=== PATIENT | female | born 1990 | race Caucasian/White ===

== ENCOUNTER 2016-11-25 14:28 | Emergency (ER) | payer MEDICAID, OTHER ==
[2016-11-25 14:34] VITALS: TEMP 98.1; O2SAT 97
--- NOTE | 2016-11-25 15:25 | EDPHY ---
H & P Stated Complaint: pelvic, abdominal pain for 4 days. sent from pcp Time Seen by Provider: 11/25/16 15:01 HPI/ROS: CHIEF COMPLAINT: Intermittent abdominal pain for 1 month HISTORY OF PRESENT ILLNESS: The patient is referred to the emergency department for a 1 month history of intermittent abdominal pain. She has had a migratory pain primarily localized to the left lower quadrant. She denies vaginal bleeding, dysuria or urinary frequency. She has no prior history of significant abdominal pain. She denies nausea, vomiting or diarrhea. She denies recent antibiotic use. She denies history of fall or trauma. The patient denies prior abdominal surgical history. REVIEW OF SYSTEMS: A comprehensive 10 point review of systems is otherwise negative aside from elements mentioned in the history of present illness. Source: Patient Exam Limitations: No limitations - Personal History LMP (Females 10-55): 8-14 Days Ago Current Tetanus Diphtheria and Acellular Pertussis (TDAP): Yes - Medical/Surgical History Hx Asthma: No Hx Chronic Respiratory Disease: No Hx Diabetes: No Hx Cardiac Disease: No Hx Renal Disease: No Hx Cirrhosis: No Hx Alcoholism: No Hx HIV/AIDS: No Hx Splenectomy or Spleen Trauma: No Other PMH: Otherwise healthy - Social History Smoking Status: Former smoker - Physical Exam Exam: General Appearance: Alert, no distress Eyes: Pupils equal and round no pallor or injection ENT, Mouth: Mucous membranes moist Respiratory: There are no retractions, lungs are clear to auscultation Cardiovascular: Regular rate and rhythm Gastrointestinal: Minimal tenderness to palpation in the left lower quadrant, no peritoneal signs Neurological: A&O, normal motor function, normal sensory exam, normal cranial nerves Skin: Warm and dry, no rashes Musculoskeletal: Neck is supple nontender Extremities: symmetrical, full range of motion Psychiatric: Patient is oriented X 3, there is no agitation Constitutional: Initial Vital Signs Temperature (C) 36.7 C 11/25/16 14:29 Heart Rate 85 11/25/16 14:29 Respiratory Rate 18 11/25/16 14:29 Blood Pressure 120/66 11/25/16 14:29 O2 Sat (%) 97 11/25/16 14:29 O2 Delivery Mode Room Air Allergies/Adverse Reactions: morphine Allergy (Mild, Verified 10/29/15 12:12) vomiting and shaking Sulfa (Sulfonamide Antibiotics) Allergy (Unknown, Verified 10/29/15 12:12) Home Medications: Medication Instructions Recorded Cephalexin [Keflex] 500 mg PO TID #15 cap 11/25/16 Medical Decision Making - Diagnostics Imaging: Pelvic ultrasound: Images reported to me by Dr. Rafael Wolf as showing no evidence of torsion or free fluid. There is no evidence of significant ovarian cyst. ED Course/Re-evaluation: The patient presents to the ED for evaluation of 1 month of migratory abdominal pain. The patient's abdominal examination is benign and does demonstrate minimal tenderness to palpation in the left lower quadrant. The pelvic ultrasound has been ordered to evaluate for ovarian pathology. The patient's pelvic ultrasound demonstrates no evidence of torsion. There is no evidence an acute abdomen in the emergency department today. The patient does have mild pyuria and bacteriuria. The patient will be treated for possible UTI with Keflex. The patient will follow up with her regular physician. The patient does report [facility] and [facility] an unremarkable Pap smear done within the past month. Differential Diagnosis: Differential diagnosis considered includes urinary tract infection, ovarian cyst , ovarian torsion, ectopic , intrauterine - Data Points Laboratory Results: Laboratory Results 11/25/16 15:30 11/25/16 15:30 11/25/16 11/25/16 15:30 15:10 WBC 6.31 10^3/uL (3.80-9.50) RBC 4.62 10^6/uL (4.18-5.33) Hgb 14.7 g/dL (12.6-16.3) Hct 43.0 % (38.0-47.0) MCV 93.1 fL (81.5-99.8) MCH 31.8 pg (27.9-34.1) MCHC 34.2 g/dL (32.4-36.7) RDW 13.2 % (11.5-15.2) Plt Count 231 10^3/uL (150-400) MPV 10.7 fL (8.7-11.7) Neut % (Auto) 46.4 % (39.3-74.2) Lymph % (Auto) 40.7 % (15.0-45.0) [place] % (Auto) 6.7 % (4.5-13.0) Eos % (Auto) 5.4 % (0.6-7.6) Baso % (Auto) 0.6 % (0.3-1.7) Nucleat RBC Rel Count 0.0 % (0.0-0.2) Absolute Neuts (auto) 2.93 10^3/uL (1.70-6.50) Absolute Lymphs (auto) 2.57 10^3/uL (1.00-3.00) Absolute Monos (auto) 0.42 10^3/uL (0.30-0.80) Absolute Eos (auto) 0.34 10^3/uL (0.03-0.40) Absolute Basos (auto) 0.04 10^3/uL (0.02-0.10) Absolute Nucleated RBC 0.00 10^3/uL (0-0.01) Immature Gran % 0.2 % (0.0-1.1) Immature Gran # 0.01 10^3/uL (0.00-0.10) Sodium 139 mEq/L (134-144) Potassium 4.0 mEq/L (3.5-5.2) Chloride 107 mEq/L (97-110) Carbon Dioxide 22 mEq/l (22-31) Anion Gap 10 mEq/L (8-16) BUN 13 mg/dL (7-23) Creatinine 0.7 mg/dL (0.6-1.0) Estimated GFR > 60 Glucose 79 mg/dL (70-100) Calcium 10.3 mg/dL (8.5-10.4) Total Bilirubin 0.6 mg/dL (0.1-1.4) Conjugated Bilirubin 0.2 mg/dL (0.0-0.5) Unconjugated Bilirubin 0.4 mg/dL (0.0-1.1) AST 34 IU/L (14-46) ALT 33 IU/L (9-52) Alkaline Phosphatase 48 IU/L (38-126) Total Protein 7.6 g/dL (6.3-8.2) Albumin 4.5 g/dL (3.5-5.0) Lipase 166.0 IU/L (23-300) Beta HCG, Qual NEGATIVE Urine Color PALE YELLOW Urine Appearance CLEAR Urine pH 6.0 (5.0-7.5) Ur Specific [place] 1.006 (1.002-1.030) Urine Protein NEGATIVE (NEGATIVE) Urine Ketones NEGATIVE (NEGATIVE) Urine Blood NEGATIVE (NEGATIVE) Urine Nitrate NEGATIVE (NEGATIVE) Urine Bilirubin NEGATIVE (NEGATIVE) Urine Urobilinogen NEGATIVE EU (0.2-1.0) Ur Leukocyte Esterase TRACE H (NEGATIVE) Urine RBC 5-10 H /hpf (0-3) Urine WBC 3-5 H /hpf (0-3) Ur Epithelial Cells TRACE /lpf (NONE-1+) Urine Bacteria 1+ H /hpf (NONE SEEN) Ur Culture Indicated? INDICATED H (NI) Urine Glucose NEGATIVE (NEGATIVE) Departure - Departure Disposition: Home, Routine, Self-Care Clinical Impression: Acute abdominal pain, UTI (urinary tract infection) Condition: Good Instructions: Urinary Tract Infection in Women (ED) Additional Instructions: 1. Please take antibiotics as directed for the next 5 days. 2. Please return to the emergency department for markedly worsening symptoms or other concerns. 3. Follow up with your kitchen help handyman and primary care provider as needed. 4. Take Ibuprofen or Motrin 600 mg by mouth three times a day. Referrals: Amor Bledsoe MD [Primary Care Provider] - As per Instructions Prescriptions: Cephalexin [Keflex] 500 mg PO TID #15 cap
[2016-11-25 15:44] LABS: % IMMATURE GRANULYOCYTES 0.2 % (0.0-1.1); ABSOLUTE IMMATURE GRANULOCYTES 0.01 10^3/uL (0.00-0.10); ADD DIFF? NO; ADD MORPH? NO; ADD SCAN? NO; ATYPICAL LYMPHOCYTE FLAG 10 (0-99); FRAGMENT RBC FLAG 0 (0-99); HEMOGLOBIN 14.7 g/dL (12.6-16.3); LEFT SHIFT FLG 0 (0-99); LIPEMIA HEMOLYSIS FLAG 90 (0-99); MEAN CELL HEMOGLOBIN 31.8 pg (27.9-34.1); MEAN CELL HEMOGLOBIN CONCENTR. 34.2 g/dL (32.4-36.7); MEAN CELL VOLUME 93.1 fL (81.5-99.8); MEAN PLATELET VOLUME 10.7 fL (8.7-11.7); PLATELET CLUMPS FLAG 0 (0-99); PLATELET COUNT 231 10^3/uL (150-400); RED BLOOD CELL COUNT 4.62 10^6/uL (4.18-5.33); RED CELL DISTRIBUTION WIDTH 13.2 % (11.5-15.2)
[2016-11-25 15:48] LABS: COLOR PALE YELLOW; LEUKOCYTE ESTERASE,URINE TRACE (NEGATIVE); NITRITE,URINE NEGATIVE (NEGATIVE)
[2016-11-25 15:55] LABS: BACTERIA 1+ /hpf (NONE SEEN)
[2016-11-25 15:55] LABS: ALANINE AMINOTRANSFERASE 33 IU/L (9-52); ALBUMIN 4.5 g/dL (3.5-5.0); ALKALINE PHOSPHATASE 48 IU/L (38-126); ANION GAP 10 mEq/L (8-16); ASPARTATE AMINOTRANSFERASE 34 IU/L (14-46); BILIRUBIN,TOTAL 0.6 mg/dL (0.1-1.4); BILIRUBIN-CONJUGATED 0.2 mg/dL (0.0-0.5); BILIRUBIN-UNCONJUGATED 0.4 mg/dL (0.0-1.1); CALCIUM 10.3 mg/dL (8.5-10.4); CARBON DIOXIDE 22 mEq/l (22-31); CHLORIDE 107 mEq/L (97-110); CREATININE 0.7 mg/dL (0.6-1.0); GLOMERULAR FILTRATION RATE > 60; GLUCOSE 79 mg/dL (70-100); SODIUM 139 mEq/L (134-144); TOTAL PROTEIN 7.6 g/dL (6.3-8.2)
--- NOTE | 2016-11-25 16:41 | US ---
Transabdominal and Transvaginal Pelvic Ultrasound History: 26-year-old with left lower quadrant pain, LMP November 14, 2016. Comparison: Pelvic ultrasound November 10, 2012. Findings: Transabdominal: The uterus measures 8.2 x 4.2 x 5.5 cm. The bladder is normal. Transvaginal: The uterus is retroflexed. The endometrium is homogeneous and measures 10 mm. The left ovary measures 3.7 x 2.2 x 9.2 cm with a volume of 9.4 mL. The right ovary measures 3.4 x 2.0 x 2.6 c m with a volume of 9.2 mL. Approximately 12 small follicles are noted in the left ovary. Normal arter ial blood flow is documented to both ovaries by Doppler ultrasound. There is no free fluid. Impression: 1. No acute findings in the pelvis. 2. Polycystic left ovary. Findings discussed with Dr. Long Glez on November 25, 2016 at 1633 hours.
[2016-11-25 17:15] VITALS: BP 114/67; PULSE 80; RESP 16
== END 2016-11-25 17:12 | disposition home or self-care (01) ==
DX: N39.0 Urinary tract infection, site not specified (principal); Z87.891 Personal history of nicotine dependence

== ENCOUNTER 2017-08-27 13:21 | Emergency (ER) | payer OTHER ==
--- NOTE | 2017-08-27 14:16 | EDPHY ---
H & P Stated Complaint: "Feels like I'm in an elevator all the time" ~1wk - Personal History LMP (Females 10-55): 15-21 Days Ago Current Tetanus Diphtheria and Acellular Pertussis (TDAP): Yes - Medical/Surgical History Hx Asthma: No Hx Chronic Respiratory Disease: No Hx Diabetes: No Hx Cardiac Disease: No Hx Renal Disease: No Hx Cirrhosis: No Hx Alcoholism: No Hx HIV/AIDS: No Hx Splenectomy or Spleen Trauma: No Other PMH: concussions - Social History Smoking Status: Former smoker Constitutional: Initial Vital Signs Temperature (C) 36.5 C 08/27/17 13:22 Heart Rate 71 08/27/17 13:22 Respiratory Rate 16 08/27/17 13:22 Blood Pressure 113/72 08/27/17 13:22 O2 Sat (%) 97 08/27/17 13:22 O2 Delivery Mode Room Air Allergies/Adverse Reactions: morphine Allergy (Mild, Verified 08/27/17 13:21) vomiting and shaking Sulfa (Sulfonamide Antibiotics) Allergy (Unknown, Verified 08/27/17 13:27) Home Medications: Medication Instructions Recorded NK [No Known Home Meds] 08/27/17 Medical Decision Making - Diagnostics Imaging Results: Imaging Impressions Brain MRI 08/27/17 14:17 Impression: 1. Mild bilateral maxillary and ethmoid sinusitis. 2. Otherwise normal MRI brain without and with contrast enhancement. 3. No acute infarct, acute hemorrhage, hydrocephalus, or enhancing lesions. Findings and recommendations discussed with Emergency Department physician, Abram Lewis MD at 18:16 hour, 08/27/2017. Final report concurs with initial preliminary interpretation. Imaging: Discussed imaging studies w/ riddler operator Radiologist ED Course/Re-evaluation: CHIEF COMPLAINT: Vision changes HISTORY OF PRESENT ILLNESS: The patient is a 26 y/o female arriving with her daughters complaining of vision changes for the last week. She says, "I feel like I'm in an elevator" and "my vision totally went to shit;" "my eyes feel like liquid piss." She further describes her vision as blurry and in-and-out. She also feels like she is having difficulty speaking normally, is working more slowly at work, and has increased difficulty concentrating. She is having a lot of difficulty holding conversations. She felt nauseated yesterday. She fell off a ladder onto a wood floor and thinks she landed on her shoulder three days ago and has a little right scapula pain. She denies fever, chills. She went to two doctors at [facility] for these symptoms and was ultimately referred here. She is having difficulty explaining how she feels and what she was evaluated for at her PCP's office. REVIEW OF SYSTEMS: A 10 point review of systems was performed and is negative with the exception of the elements mentioned in the history of present illness. PHYSICAL EXAM: General Appearance: Alert, well hydrated, appropriate, and non-toxic appearing. Disheveled. Head: Atraumatic without scalp tenderness or obvious injury Eyes: Pupils equal, round, reactive to light and accommodation, EOMI, no trauma , no injection. Ears: Clear bilaterally, no perforation, normal landmarks Nose: Atraumatic, no rhinorrhea, clear. Throat: There is no erythema or exudates, no lesions, normal tonsils, mucus membranes moist. Neck: Supple, non-tender, no lymphadenopathy. Respiratory: No retractions, no distress, no wheezes, and no accessory muscle use. Lungs are clear to auscultation bilaterally. Cardiovascular: Regular rate and rhythm, no murmurs, rubs, or gallops. Good capillary refill all extremities. Gastrointestinal: Abdomen is soft, non-tender, non-distended, no masses, no rebound, no guarding, no peritoneal signs. Musculoskeletal: Normal active ROM of all extremities, atraumatic. Right below- the-elbow amputation. Neurological: Alert, has some difficulty with word finding and holding conversation, normally interactive. The patient has non-focal cranial nerves, motor, sensory, and cerebellar exam. Skin: No rashes, good turgor, no nodules on palpation. 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 . DIAGNOSTICS/PROCEDURES/CRITICAL CARE TIME: Brain MRI: mild sinusitis, nothing else acute DIFFERENTIAL DIAGNOSIS: The differential diagnosis for the patient's neurologic deficits included but was not limited to peripheral causes, central causes including CVA, TIA, electrolyte abnormalities and dehydration, cardiogenic causes, atypical causes like migraine syndrome. MEDICAL DECISION MAKING: This is a 26 y/o female who presents with a one week history of vision changes and general cognitive difficulty. She has difficulty explaining her symptoms to me and it's unclear if this speech difficulty is her baseline or not. No obvious cerebellar abnormality on exam. Plan for IV, labs, and brain MRI. 1515: I ordered patient's MRI 3 hours ago and she still has not had it performed. 1820: Patient's MRI shows mild sinusitis, but otherwise nothing acute. I discussed findings with the patient and recommended follow up with neurology next week. Return precautions discussed. She agrees with plan for discharge. - Data Points Laboratory Results: Laboratory Results 08/27/17 14:51 08/27/17 14:51 08/27/17 08/27/17 08/27/17 14:51 14:51 14:43 WBC 7.04 10^3/uL 10^3/uL (3.80-9.50) RBC 4.55 10^6/uL 10^6/uL (4.18-5.33) Hgb 14.3 g/dL g/dL (12.6-16.3) POC Hgb 16.0 gm/dL gm/dL (12.6-16.3) Hct 42.1 % % (38.0-47.0) POC Hct 47 % % (38-47) MCV 92.5 fL fL (81.5-99.8) MCH 31.4 pg pg (27.9-34.1) MCHC 34.0 g/dL g/dL (32.4-36.7) RDW 13.2 % % (11.5-15.2) Plt Count 202 10^3/uL 10^3/uL (150-400) MPV 10.6 fL fL (8.7-11.7) Neut % (Auto) 66.1 % % (39.3-74.2) Lymph % (Auto) 20.5 % % (15.0-45.0) [place] % (Auto) 7.5 % % (4.5-13.0) Eos % (Auto) 5.0 % % (0.6-7.6) Baso % (Auto) 0.6 % % (0.3-1.7) Nucleat RBC Rel Count 0.0 % % (0.0-0.2) Absolute Neuts (auto) 4.66 10^3/uL 10^3/uL (1.70-6.50) Absolute Lymphs (auto) 1.44 10^3/uL 10^3/uL (1.00-3.00) Absolute Monos (auto) 0.53 10^3/uL 10^3/uL (0.30-0.80) Absolute Eos (auto) 0.35 10^3/uL 10^3/uL (0.03-0.40) Absolute Basos (auto) 0.04 10^3/uL 10^3/uL (0.02-0.10) Absolute Nucleated RBC 0.00 10^3/uL 10^3/uL (0-0.01) Immature Gran % 0.3 % % (0.0-1.1) Immature Gran # 0.02 10^3/uL 10^3/uL (0.00-0.10) POC Sodium 141 mEq/L mEq/L (134-144) Sodium 140 mEq/L mEq/L (134-144) POC Potassium 3.7 mEq/L mEq/L (3.3-5.0) Potassium 4.3 mEq/L mEq/L (3.5-5.2) POC Chloride 106 mEq/L mEq/L (97-110) Chloride 105 mEq/L mEq/L (97-110) Carbon Dioxide 22 mEq/l mEq/l (22-31) Anion Gap 13 mEq/L mEq/L (8-16) POC BUN 11 mg/dL mg/dL (7-23) BUN 12 mg/dL mg/dL (7-23) Creatinine 0.7 mg/dL mg/dL (0.6-1.0) POC Creatinine 0.8 mg/dL mg/dL (0.6-1.0) Estimated GFR > 60 Glucose 89 mg/dL mg/dL (70-100) POC Glucose 92 mg/dL mg/dL (70-100) Calcium 10.2 mg/dL mg/dL (8.5-10.4) Point of Care Test Results: 08/27/17 14:43 POC Sodium 141 POC Potassium 3.7 POC Chloride 106 POC BUN 11 POC Creatinine 0.8 POC Glucose 92 Departure - Departure Disposition: Home, Routine, Self-Care Clinical Impression: Cognitive change Condition: Good Instructions: Altered Mental Status (ED) Additional Instructions: Follow up with neurologist on Wednesday. Return to the ED for worsening of condition. Referrals: Amor Bledsoe MD [Primary Care Provider] - As per Instructions Nelson Morales DO [Medical Doctor] - As per Instructions Report Scribed for: Abram Lewis Report Scribed by: Yamila Yeh Date of Report: 08/27/17 Time of Report: 14:19
[2017-08-27 15:04] LABS: % IMMATURE GRANULYOCYTES 0.3 % (0.0-1.1); ABSOLUTE IMMATURE GRANULOCYTES 0.02 10^3/uL (0.00-0.10); ADD DIFF? NO; ADD MORPH? NO; ADD SCAN? NO; ATYPICAL LYMPHOCYTE FLAG 10 (0-99); FRAGMENT RBC FLAG 0 (0-99); HEMATOCRIT 42.1 % (38.0-47.0); HEMOGLOBIN 14.3 g/dL (12.6-16.3); LEFT SHIFT FLG 0 (0-99); LIPEMIA HEMOLYSIS FLAG 90 (0-99); MEAN CELL HEMOGLOBIN 31.4 pg (27.9-34.1); MEAN CELL VOLUME 92.5 fL (81.5-99.8); MEAN PLATELET VOLUME 10.6 fL (8.7-11.7); PLATELET CLUMPS FLAG 10 (0-99); PLATELET COUNT 202 10^3/uL (150-400); RED BLOOD CELL COUNT 4.55 10^6/uL (4.18-5.33); RED CELL DISTRIBUTION WIDTH 13.2 % (11.5-15.2)
[2017-08-27 15:18] LABS: ANION GAP 13 mEq/L (8-16); CALCIUM 10.2 mg/dL (8.5-10.4); CARBON DIOXIDE 22 mEq/l (22-31); CHLORIDE 105 mEq/L (97-110); CREATININE 0.7 mg/dL (0.6-1.0); GLOMERULAR FILTRATION RATE > 60; GLUCOSE 89 mg/dL (70-100); POTASSIUM 4.3 mEq/L (3.5-5.2); SODIUM 140 mEq/L (134-144)
[2017-08-27] MEDS ORDERED: GADOBUTROL 10 ML VIAL IVP ONE (17:42)
[2017-08-27 18:14] VITALS: BP 103/67; PULSE 69; RESP 16; TEMP 98.2; O2SAT 98
== END 2017-08-27 18:54 | disposition home or self-care (01) ==
DX: G31.84 Mild cognitive impairment of uncertain or unknown etiology (principal); Z87.891 Personal history of nicotine dependence
CPT/HCPCS: 82947-QW; A9585

== ENCOUNTER → 2017-09-15 | Outpatient (CLI) | payer OTHER ==
--- NOTE | 2017-09-16 08:55 | CPEEG ---
[f rep st] ELECTROENCEPHALOGRAM EEG DATE OF STUDY: 09/15/2017 INTERPRETATION: Normal EEG during wakefulness and drowsiness. There were no potentially epileptogenic abnormalities present on the recording. REPORT: This EEG contains 10 Hz alpha activity to the posterior head regions. There was no abnormal activation at rest, during photic stimulation, or hyperventilation. The patient became drowsy during the study. There was no abnormal activation during drowsiness or during times of arousal. /[id number]/MODL [id number]
== END ==
LOC: FCPNEURO 12:55
PROVIDERS: ATTEND Psychiatry & Neurology Neurology
DX: H53.9 Unspecified visual disturbance (principal)